=== PATIENT | male | born 1985 | race Caucasian/White ===

== ENCOUNTER 2016-06-23 11:36 | Emergency (ER) | payer SELFPAY ==
[2016-06-23 11:42] VITALS: BP 153/73; PULSE 134; RESP 22; TEMP 98.2; O2SAT 96
[2016-06-23 11:45] VITALS: BP 153/73; PULSE 130; RESP 18; O2SAT 95
[2016-06-23] MEDS ORDERED: SODIUM CHLOR 0.9% 1000 ML INJ 1,000 ML IV ONE (11:48)
--- NOTE | 2016-06-23 11:54 | PD ---
HPI Chief Complaint: OD/ Ingestion Time Seen by Provider: 11:52 Travel History International Travel<30 days: No Contact w/Intl Traveler<30days: No Traveled to known affect area: No History of Present Illness HPI Patient comes in via EMS after being found unresponsive by his girlfriend per EMS. Patient was given Narcan allow him to wake immediately. Patient reports he accidentally overdosed on heroin and cocaine. Patient states he injected normal amounts but apparently was stronger when he normally gets. Patient denies any complaints or concerns currently. Denies any chest pain, shortness of breath, headache, abdominal pain, nausea, or vomiting. PFSH Past Medical History Hx Anticoagulant Therapy: No Arthritis: No Asthma: No Anxiety: Yes Depression: No Heart Rhythm Problems: No Cancer: No Cardiovascular Problems: No High Cholesterol: No Chemotherapy: No Chest Pain: No Congestive Heart Failure: No COPD: No Cerebrovascular Accident: No Diabetes: No Diminished Hearing: No Endocrine: No Gastrointestinal Disorders: No GERD: No Genitourinary: No Headaches: No Hiatal Hernia: No Hypertension: No Implanted Vascular Access Dvce: No Kidney Stones: No Neurologic: No Psychiatric: Yes (adhd) Reproductive: No Respiratory: No Migraines: No Radiation Therapy: No Renal Failure: No Seizures: No Sleep Apnea: No Ulcer: No ?: Not Past Surgical History AICD: No Arteriovenous Shunt: No Insulin Pump: No Pacemaker: No Other Surgery: No Social History Alcohol Use: Yes (OCC) Tobacco Use: Yes (1/2 PPD) Substance Use: Yes (xanax and dilaudid (p.o. 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 SKIN: Warm and dry. HEAD: Atraumatic. Normocephalic. EYES: Pupils equal and round. EOMI. No scleral icterus. No injection or drainage. ENT: No nasal bleeding or discharge. Mucous membranes pink and moist. NECK: Trachea midline. No JVD. Supple. No nuclear rigidity. CARDIOVASCULAR: Tachycardia rate and regular rhythm. No murmur appreciated. RESPIRATORY: No accessory muscle use. No respiratory distress. Clear to auscultation. Breath sounds equal bilaterally. MUSCULOSKELETAL: No obvious deformities. No clubbing. No cyanosis. No edema. Full range of motion. NEUROLOGICAL: Awake and alert. No obvious cranial nerve deficits. Motor grossly within normal limits. Normal speech. PSYCHIATRIC: Appropriate mood and affect; insight and judgment normal. Data Data Last Documented VS Vital Signs Date Time Temp Pulse Resp B/P Pulse Ox O2 Delivery O2 Flow Rate FiO2 06/23/16 17:00 98.5 77 18 134/76 99 06/23/16 16:00 Room Air Orders Electrocardiogram (06/23/16 11:48) Basic Metabolic Panel (Bmp) (06/23/16 11:48) Complete Blood Count With Diff (06/23/16 11:48) Chest, Single Ap (06/23/16 11:48) Iv Access Insert/Monitor (06/23/16 11:48) Ecg Monitoring (06/23/16 11:48) Oximetry (06/23/16 11:48) Sodium Chloride 0.9% Flush (Ns Flush) (06/23/16 12:00) Sodium Chlor 0.9% 1000 Ml Inj (Ns 1000 M (06/23/16 11:48) Labs Laboratory Tests Test 06/23/16 11:55 White Blood Count 8.0 TH/MM3 Red Blood Count 5.44 MIL/MM3 Hemoglobin 16.0 GM/DL Hematocrit 45.7 % Mean Corpuscular Volume 84.0 FL Mean Corpuscular Hemoglobin 29.5 PG Mean Corpuscular Hemoglobin 35.1 % Concent Red Cell Distribution Width 12.7 % Platelet Count 210 TH/MM3 Mean Platelet Volume 6.3 FL Neutrophils (%) (Auto) 44.5 % Lymphocytes (%) (Auto) 44.3 % Monocytes (%) (Auto) 10.2 % Eosinophils (%) (Auto) 0.5 % Basophils (%) (Auto) 0.5 % Neutrophils # (Auto) 3.6 TH/MM3 Lymphocytes # (Auto) 3.5 TH/MM3 Monocytes # (Auto) 0.8 TH/MM3 Eosinophils # (Auto) 0.0 TH/MM3 Basophils # (Auto) 0.0 TH/MM3 CBC Comment AUTO DIFF Differential Total Cells 100 Counted Neutrophils % (Manual) 50 % Lymphocytes % 45 % Monocytes % 3 % Eosinophils % 1 % Basophils % 1 % Neutrophils # (Manual) 4.0 TH/MM3 Differential Comment FINAL DIFF MANUAL Atypical Lymphocytes % Platelet Estimate NORMAL Platelet Morphology Comment NORMAL Red Cell Morphology Comment NORMAL Sodium Level 138 MEQ/L Potassium Level 3.9 MEQ/L Chloride Level 101 MEQ/L Carbon Dioxide Level 31.3 MEQ/L Anion Gap 6 MEQ/L Blood Urea Nitrogen 8 MG/DL Creatinine 0.97 MG/DL Estimat Glomerular Filtration 90 ML/MIN Rate Random Glucose 113 MG/DL Calcium Level 8.9 MG/DL [facility] Medical Decision Making Medical Screen Exam Complete: Yes Emergency Medical Condition: Yes Interpretation(s) EKG reviewed by Dr. Borrego shows sinus tachycardia with ventricular rate of 107. No STEMI and no acute abnormality. Differential Diagnosis Accident overdose, intentional overdose, polysubstance abuse, other Narrative Course Patient in no obvious distress upon re-evaluation. All pertinent laboratory/ Radiology result(s) discussed with patient. Patient was born emergency for lower 4 hours with no change in mental or respiratory status. Patient noted to be ambulating around the ER multiple occasions. Discussed patient with Dr. Borrego who saw and evaluated the patient and is agreeable with plan of care and disposition. Any questions/concerns in reference to patient diagnosis/ condition discussed and clarified prior to patient's discharge. Reinforced sheer importance of close follow up with patient's primary physician or primary care clinic. Instructed patient to return to ED immediately, if symptoms return/ worsen. Pt showed understanding of above instructions. Further instructions and recommendations were detailed in discharge paperwork. Pt ambulated without difficulty out of ED at discharge. Diagnosis Primary Impression: Opiate overdose Qualified Code: T40.601A - Opiate overdose, accidental or unintentional, initial encounter Referrals: [facility] Patient Instructions: General Instructions, Opioid Overdose (ED) Additional Instructions: Follow-up with your primary care physician and/or [facility] as soon as possible for detox. Return to the emergency department if symptoms get worse. Scripts No Active Prescriptions or Reported Meds Disposition: 01 DISCHARGE HOME Condition: Stable Kwasi Henning Jun 23, 2016 11:54
[2016-06-23 11:55] VITALS: RESP 22; O2SAT 97
[2016-06-23] MEDS ORDERED: SODIUM CHLORIDE 0.9% FLUSH 5 ML FLUSH IVF PRN (12:00)
[2016-06-23 12:10] LABS: AUTOMATED NEUTROPHIL # 3.6 TH/MM3 (1.8-7.7); BASOPHIL % 0.5 % (0.0-2.0); EOSINOPHIL % 0.5 % (0.0-4.0); HEMATOCRIT 45.7 % (39.0-51.0); LYMPH % 44.3 % (9.0-44.0); LYMPHOCYTE # 3.5 TH/MM3 (1.0-4.8); MEAN CORPUSCULAR HEMOGLOBIN 29.5 PG (27.0-34.0); MEAN CORPUSCULAR HGB CONC 35.1 % (32.0-36.0); MONO % 10.2 % (0.0-8.0); NEUT % 44.5 % (16.0-70.0); PLATELET COUNT 210 TH/MM3 (150-450); RED BLOOD COUNT 5.44 MIL/MM3 (4.50-5.90); RED CELL DISTRIBUTION WIDTH 12.7 % (11.6-17.2)
[2016-06-23 12:13] LABS: HEMO FLAGS AUTO DIFF
[2016-06-23 12:21] LABS: BICARBONATE 31.3 MEQ/L (21.0-32.0); POTASSIUM 3.9 MEQ/L (3.5-5.1)
[2016-06-23 12:38] LABS: BASOPHILS 1 % (0-2); EOSINOPHILS 1 % (0-4); POLYS (SEG NEUTROPHILS) 50 % (16-70); WBC DIFF SAMPLE 100
[2016-06-23 12:39] LABS: PLATELET ESTIMATE SMEAR NORMAL (NORMAL); PLATELET MORPHOLOGY NORMAL (NORMAL); SCAN/DIFF FINAL DIFF MANUAL
--- NOTE | 2016-06-23 12:54 | PD ---
Data Data Last Documented VS Vital Signs Date Time Temp Pulse Resp B/P Pulse Ox O2 Delivery O2 Flow Rate FiO2 06/23/16 11:55 22 97 Room Air 06/23/16 11:45 130 153/73 06/23/16 11:42 98.2 Orders Electrocardiogram (06/23/16 11:48) Basic Metabolic Panel (Bmp) (06/23/16 11:48) Complete Blood Count With Diff (06/23/16 11:48) Chest, Single Ap (06/23/16 11:48) Iv Access Insert/Monitor (06/23/16 11:48) Ecg Monitoring (06/23/16 11:48) Oximetry (06/23/16 11:48) Sodium Chloride 0.9% Flush (Ns Flush) (06/23/16 12:00) Sodium Chlor 0.9% 1000 Ml Inj (Ns 1000 M (06/23/16 11:48) Labs Laboratory Tests Test 06/23/16 11:55 White Blood Count 8.0 TH/MM3 Red Blood Count 5.44 MIL/MM3 Hemoglobin 16.0 GM/DL Hematocrit 45.7 % Mean Corpuscular Volume 84.0 FL Mean Corpuscular Hemoglobin 29.5 PG Mean Corpuscular Hemoglobin 35.1 % Concent Red Cell Distribution Width 12.7 % Platelet Count 210 TH/MM3 Mean Platelet Volume 6.3 FL Neutrophils (%) (Auto) 44.5 % Lymphocytes (%) (Auto) 44.3 % Monocytes (%) (Auto) 10.2 % Eosinophils (%) (Auto) 0.5 % Basophils (%) (Auto) 0.5 % Neutrophils # (Auto) 3.6 TH/MM3 Lymphocytes # (Auto) 3.5 TH/MM3 Monocytes # (Auto) 0.8 TH/MM3 Eosinophils # (Auto) 0.0 TH/MM3 Basophils # (Auto) 0.0 TH/MM3 CBC Comment AUTO DIFF Differential Total Cells 100 Counted Neutrophils % (Manual) 50 % Lymphocytes % 45 % Monocytes % 3 % Eosinophils % 1 % Basophils % 1 % Neutrophils # (Manual) 4.0 TH/MM3 Differential Comment FINAL DIFF MANUAL Atypical Lymphocytes % Platelet Estimate NORMAL Platelet Morphology Comment NORMAL Red Cell Morphology Comment NORMAL Sodium Level 138 MEQ/L Potassium Level 3.9 MEQ/L Chloride Level 101 MEQ/L Carbon Dioxide Level 31.3 MEQ/L Anion Gap 6 MEQ/L Blood Urea Nitrogen 8 MG/DL Creatinine 0.97 MG/DL Estimat Glomerular Filtration 90 ML/MIN Rate Random Glucose 113 MG/DL Calcium Level 8.9 MG/DL MDM Supervised Visit with FELIPE: Yes Narrative Course The history, exam, and medical decision-making in the associated mid-level provider note were completed with my assistance. I reviewed and agree with the findings presented. I attest that I had a [id number] encounter with the patient on the same day, and personally performed and documented my assessment and findings in the medical record. *My assessment and Findings: 30-year-old man, history of polysubstance abuse, presents after opiate overdose. Girlfriend called the patient was unresponsive. Given Narcan by EMS. Resolution of symptoms. We'll check labs x-rays. Scripts No Active Prescriptions or Reported Meds Glenn Borrego MD Jun 23, 2016 12:54
--- NOTE | 2016-06-23 13:26 | RADRPT ---
EXAM DATE/TIME: 06/23/2016 12:06 [facility] COMPARISON: CHEST SINGLE AP, May 04, 2016, 18:48. INDICATIONS : Syncope. Pt. states he overdosed on opiates. MEDICAL HISTORY : Hepatitis C. Substance abuse. SURGICAL HISTORY : None. ENCOUNTER: Initial ACUITY: 1 day PAIN SCORE: 0/10 LOCATION: Bilateral chest FINDINGS: A single view of the chest demonstrates the lungs to be symmetrically aerated without evidence of mas s, infiltrate or effusion. The cardiomediastinal contours are unremarkable. Osseous structures are intact. CONCLUSION: No acute disease. Nacho Kim MD on June 23, 2016 at 13:24 Board Certified Radiologist. This report was verified electronically.
[2016-06-23 13:28] VITALS: BP 125/80; PULSE 108; RESP 18; TEMP 98.3; O2SAT 97
[2016-06-23 16:00] VITALS: BP 126/78; PULSE 88; RESP 17; TEMP 98.5; O2SAT 98
[2016-06-23 17:00] VITALS: BP 134/76; TEMP 98.5
--- NOTE | 2016-06-24 20:46 | EKG ---
Date Performed: 06/23/2016 Time Performed: 12:41:58 PTAGE: 30 years EKG: SINUS TACHYCARDIA NONSPECIFIC T-WAVE ABNORMALITY ABNORMAL RHYTHM ECG PREVIOUS TRACING : 05/04/2016 18.37 Compared to prior tracing no significant change DOCTOR: Butch Amaya Interpretating Date/Time 06/24/2016 20:45:33
== END 2016-06-23 16:40 | disposition home or self-care (01) ==
LOC: NEPE 11:36
DX: T40.1X1A Poisoning by heroin, accidental (unintentional), initial encounter (principal); T40.5X1A Poisoning by cocaine, accidental (unintentional), initial encounter; R00.0 Tachycardia, unspecified; R55 Syncope and collapse; Y92.9 Unspecified place or not applicable; F17.210 Nicotine dependence, cigarettes, uncomplicated
CPT/HCPCS: 71010; 80048; 85007; 85027; 93005; 99284; J7030

== ENCOUNTER 2017-05-08 13:42 | Emergency (ER) | payer OTHER ==
[~2017-05-08] VITALS: Ht 167.6 cm; Wt 66.0 kg
[2017-05-08 13:49] VITALS: BP 131/87; PULSE 105; RESP 22; TEMP 98.4; O2SAT 99
[2017-05-08 13:55] VITALS: BP 131/87; PULSE 106; RESP 22; TEMP 98.4; O2SAT 99
--- NOTE | 2017-05-08 14:29 | PD ---
HPI Chief Complaint: Alcohol/Drug Intoxication Time Seen by Provider: 13:52 Travel History International Travel<30 days: No Contact w/Intl Traveler<30days: No Traveled to known affect area: No History of Present Illness HPI 31-year-old male presents to the emergency department via EMS for accidental heroin overdose. Patient states he injected "half a bike" of heroin. His girlfriend went to get food from a fast food restaurant and when she came out he was slumped over. When EMS arrived, he was a GCS of 3. He states began approximately 1 mg of Narcan and he has been a GCS of 15 since. The patient states this was an accident. Denies any suicidal or homicidal ideation. He states he has been an IV drug user for approximately 10 years. He denies taking any other drugs other than heroin. Patient is tearful my exam. He states he doesn't want to live like this anymore and wants to get help for his drug use. The patient denies any medical complaints and states that he feels at his baseline. He has no medical problems and takes no prescribed medications. He denies any other illicit drug use. He denies drinking alcohol. Moderate severity. PFSH Past Medical History Hx Anticoagulant Therapy: No Arthritis: No Asthma: No Anxiety: Yes Depression: No Heart Rhythm Problems: No Cancer: No Cardiovascular Problems: No High Cholesterol: No Chemotherapy: No Chest Pain: No Congestive Heart Failure: No COPD: No Cerebrovascular Accident: No Diabetes: No Diminished Hearing: No Endocrine: No Gastrointestinal Disorders: No GERD: No Genitourinary: No Headaches: No Hiatal Hernia: No Hypertension: No Implanted Vascular Access Dvce: No Kidney Stones: No Neurologic: No Psychiatric: Yes (adhd) Reproductive: No Respiratory: No Migraines: No Radiation Therapy: No Renal Failure: No Seizures: No Sleep Apnea: No Ulcer: No ?: Not Past Surgical History AICD: No Arteriovenous Shunt: No Insulin Pump: No Pacemaker: No Other Surgery: No Social History Alcohol Use: Yes (OCC) Tobacco Use: Yes (1/2 PPD) Substance Use: Yes (xanax and dilaudid (p.o. 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 Patient is alert and oriented to person, place, time. SKIN: Focused skin assessment warm/dry. HEAD: Normocephalic. Atraumatic. EYES: No scleral icterus. No injection or drainage. NECK: Supple, trachea midline. No JVD or lymphadenopathy. CARDIOVASCULAR: Regular rate and rhythm without murmurs, gallops, or rubs. Bilateral radial and pedal pulses are 2+. RESPIRATORY: Breath sounds equal bilaterally. No accessory muscle use. Lungs sounds are clear to auscultation. GASTROINTESTINAL: Abdomen soft, non-tender, nondistended. MUSCULOSKELETAL: No cyanosis, or edema. BACK: Nontender without obvious deformity. No CVA tenderness. Data Data Last Documented VS Vital Signs Date Time Temp Pulse Resp B/P (MAP) Pulse Ox O2 Delivery O2 Flow Rate FiO2 05/08/17 17:23 75 16 127/78 (94) 97 Room Air 05/08/17 13:55 98.4 MDM Medical Decision Making Medical Screen Exam Complete: Yes Emergency Medical Condition: Yes Medical Record Reviewed: Yes Differential Diagnosis Heroin overdose versus IV drug use versus medical clearance Narrative Course 31-year-old male presents to the emergency department by EMS after he overdosed on heroin. Patient is an IV drug user. He is at his baseline denies any complaints at this time. The patient will be monitored in the emergency department for 4 hours to make sure patient does not have any respiratory depression. He verbalizes agreement to this plan. Upon reassessment, patient is awake, oriented, GCS of 15. He has been monitored in the emergency department for 4 hours. He is stable for discharge. He is instructed to not use IV drugs and is warned of the risk of using IV drugs. He agrees to this. The patient was discharged in stable condition with instructions, including return instructions and follow up instructions. Diagnosis Primary Impression: Accidental heroin overdose Qualified Codes: T40.1X1A - Poisoning by heroin, accidental (unintentional), initial encounter Referrals: [facility] Patient Instructions: Adult Overdose (ED), General Instructions Additional Instructions: Stop using IV drugs. [facility] at [facility] Return to the emergency department for any acute worsening of symptoms. Med/Other Pt SpecificInfo: No Change to Meds Scripts No Active Prescriptions or Reported Meds Disposition: 01 DISCHARGE HOME Condition: Stable Michelle Sharpe May 08, 2017 14:29
[2017-05-08 17:23] VITALS: BP 127/78; PULSE 75; RESP 16; O2SAT 97
== END 2017-05-08 18:01 | disposition home or self-care (01) ==
LOC: NEPC 13:42
DX: T40.1X1A Poisoning by heroin, accidental (unintentional), initial encounter (principal); F17.200 Nicotine dependence, unspecified, uncomplicated; Z86.59 Personal history of other mental and behavioral disorders
CPT/HCPCS: 99281